=== PATIENT | female | born 1980 | race Caucasian/White ===

== ENCOUNTER 2017-09-13 08:27 | Emergency (ER) | payer OTHER ==
[~2017-09-13] VITALS: Ht 157.5 cm; Wt 104.6 kg
[~2017-09-13 08:27] MED LIST: ALBUTEROL17 GM IH; AUGMENTIN PO; CLARITIN,ALAVAR10 MG PO; CLARITIN10 MG PO; Dilaudid PO; LOESTRIN 241 TABLET PO; MOTRIN800 MG PO; Motrin PO; NATALCARE RX1 TABLE1 PO; NEXIUM40 MG PO; NORCO 5/3251 TABLET PO; PRENATAL VITAM1 EAC2 PO; PRENATAL1 EACH PO; PULMICORT; SINGULAIR10 MG PO
[2017-09-13 09:11] LABS: APPEARANCE CLOUDY ((CLEAR)); BILIRUBIN NEGATIVE; BLOOD NEGATIVE; COLOR YELLOW ((YELLOW)); GLUCOSE (STRIP) NEGATIVE; KETONES NEGATIVE; LEUKOCYTES NEGATIVE; NITRITE NEGATIVE; PROTEIN (STRIP) 30; SPECIFIC GRAVITY 1.018 (1.000-1.030); UROBILINOGEN 0.2 MG/DL (0.2-1.0)
[2017-09-13 09:32] LABS: BACTERIA NONE SEEN /HPF; EPITHELIAL CELLS 2+ /HPF; HYALINE CASTS 0-5 /LPF; MUCUS TRACE /LPF; RED BLOOD CELLS 0-5 /HPF (0-5); UCUL ADDED? NO; WHITE BLOOD CELLS 0-5 /HPF (0-5)
[2017-09-13] MEDS ORDERED: MOTRIN800 MG PO (12:35)
[2017-09-13] MEDS ORDERED: PREDNISONE20 MG PO (12:35)
[2017-09-13] MEDS ORDERED: LIDODERM 5% P1 PATCH TD (12:35)
[2017-09-13] MEDS ORDERED: FLEXERIL10 MG PO (12:35)
[2017-09-13 12:45] VITALS: BP 135/78
== END 2017-09-13 12:46 | disposition home or self-care (01) ==
LOC: EME 08:27
PROVIDERS: Nurse Practitioner Family
DX: M54.31 Sciatica, right side (principal); R10.2 Pelvic and perineal pain; N83.201 Unspecified ovarian cyst, right side; K21.9 Gastro-esophageal reflux disease without esophagitis; J45.909 Unspecified asthma, uncomplicated; Z88.5 Allergy status to narcotic agent; Z88.1 Allergy status to other antibiotic agents
CPT/HCPCS: 72100; 76856; 81003; 99281; 99285; J1885; J7512

== ENCOUNTER 2018-01-07 08:54 | Day surgery (SDC) | payer OTHER ==
[~2018-01-07] VITALS: Ht 160 cm; Wt 102.1 kg
[~2018-01-07 08:54] MED LIST changes: +FISH OIL 1,0001 EAC7 PO; +FLEXERIL10 MG PO; +LIDODERM 5% P1 PATCH TD; +MULTI-VITAMIN1 EAC4 PO; +PREDNISONE20 MG PO
[2018-01-07 09:23] VITALS: BP 117/77
[2018-01-07 09:43] LABS: BASOPHIL (%) 0.6 % (0-1); EOSINOPHIL (%) 2.9 % (0-5); EOSINOPHIL COUNT 0.1 K/uL (0-0.3); HEMATOCRIT 42.1 % (36.0-46.0); HEMOGLOBIN 13.8 G/DL (11.9-15.5); IMMATURE GRANULOCYTE (%) 0.2 % (0.0-0.7); LYMPHOCYTE (%) 32.9 % (15-42); LYMPHOCYTE COUNT 1.6 K/uL (1.0-2.8); MCH 27.4 PG (29.0-34.0); MCHC 32.8 G/DL (30.0-36.0); MCV 83.5 FL (83-99); MONOCYTE (%) 10.4 % (3-12); MONOCYTE COUNT 0.5 K/uL (0-0.8); NEUTROPHIL COUNT 2.6 K/uL (1.8-6.4); PLATELET COUNT 296 K/uL (156-360); RBC DIS.WIDTH-CV 14.3 % (11.8-14.6); RBC DIS.WIDTH-SD 43.4 % (39-53); RED BLOOD COUNT 5.04 M/uL (3.80-5.20); WHITE BLOOD COUNT 4.8 K/uL (4.1-10.2)
[2018-01-07] MEDS ORDERED: IBUPROFEN800 MG PO (11:16)
[2018-01-07 12:46] VITALS: BP 143/87
[2018-01-07 13:36] VITALS: BP 145/84
== END 2018-01-07 13:30 | disposition home or self-care (01) ==
LOC: SDC 08:54
PROVIDERS: Obstetrics & Gynecology
DX: N92.0 Excessive and frequent menstruation with regular cycle (principal); N80.8 Other endometriosis; J45.909 Unspecified asthma, uncomplicated; Z88.8 Allergy status to other drugs, medicaments and biological substances
CPT/HCPCS: 84702; 85025; 88305; J0690; J1885; J2250; J2405; J2765; J3010; Q0175